=== PATIENT | female | born 1940 | race Caucasian/White ===

== ENCOUNTER 2018-12-24 11:02 | Emergency (ER) | payer MEDICARE ==
[~2018-12-24] VITALS: Ht 165.1 cm; Wt 74.8 kg
[2018-12-24 12:04] LABS: HEMOGLOBIN 15.1 G/DL (11.5-16.0); MEAN CORPUSCULAR HEMOGLOBIN 32 PG (25-34); WHITE BLOOD COUNT 11.3 10^3/uL (4.3-11.0)
[2018-12-24 12:05] LABS: BASOPHILS # (AUTO) 0.1 10^3/uL (0.0-0.1); BASOPHILS % (AUTO) 0 % (0-10); EOSINOPHILS # (AUTO) 0.1 10^3/uL (0.0-0.3); EOSINOPHILS % (AUTO) 1 % (0-10); HEMATOCRIT 46 % (35-52); LYMPHOCYTES # (AUTO) 2.4 X 10^3 (1.0-4.0); LYMPHOCYTES % (AUTO) 21 % (12-44); MEAN CORPUSCULAR HGB CONC 33 G/DL (32-36); MEAN CORPUSCULAR VOLUME 97 FL (80-99); MONOCYTES # (AUTO) 0.9 X 10^3 (0.0-1.0); MONOCYTES % (AUTO) 8 % (0-12); NEUTROPHILS # (AUTO) 7.8 X 10^3 (1.8-7.8); NEUTROPHILS % (AUTO) 69 % (42-75); PLATELET COUNT 255 10^3/uL (130-400); RED CELL DISTRIBUTION WIDTH 14.3 % (10.0-14.5)
[2018-12-24 12:21] LABS: ALANINE AMINOTRANSFERASE 16 U/L (0-55); ALBUMIN 4.4 GM/DL (3.2-4.5); ALKALINE PHOSPHATASE 80 U/L (40-136); BILIRUBIN,TOTAL 0.4 MG/DL (0.1-1.0); BUN/CREATININE RATIO 15; CARBON DIOXIDE 26 MMOL/L (21-32); CHLORIDE 98 MMOL/L (98-107); CREATININE SERUM 0.61 MG/DL (0.60-1.30); GFR ESTIMATED > 60; GLUCOSE 125 MG/DL (70-105); POTASSIUM 4.1 MMOL/L (3.6-5.0); SODIUM 139 MMOL/L (135-145); TOTAL PROTEIN 7.8 GM/DL (6.4-8.2)
[2018-12-24 12:22] LABS: LIPASE 44 U/L (8-78)
[2018-12-24] MEDS ORDERED: NS IV 1000 ML 1,000 ML IV SCH (12:30)
[2018-12-24] MEDS ORDERED: ONDANSETRON 4 MG/2 ML (SDV) Z0FRAN IVP ONE (12:30)
[2018-12-24] MEDS ORDERED: NS 100 ML (IVPB) BAG IV ONE (13:45)
[2018-12-24] MEDS ORDERED: CATHETER FLUSH 10 ML SYR IV PRN (13:45)
[2018-12-24] MEDS ORDERED: HOLD METFORMIN - RECEIVED CONTRAST 20 ML VIAL IV SCH (13:45)
[2018-12-24] MEDS ORDERED: IOHEXOL 350 MG/ML 100 ML (OMNIPAQUE 350) VIAL IV ONE (13:45)
--- NOTE | 2018-12-24 13:45 | ED Abdominal Pain ---
General Chief Complaint: Abdominal/GI Problems Stated Complaint: ABD PAIN, DIARRHEA Source of Information: Patient History of Present Illness Date Seen by Provider: Dec 24, 2018 Time Seen by Provider: 13:21 Initial Comments 78-year-old female presenting with 3 days of epigastric and right upper quadrant abdominal pain associated with nausea vomiting and diarrhea. She feels that her symptoms are a little worse when she tries to eat or drink something. She has no radiation of the pain stays in the epigastric and right upper quadrant. It does not go to her back or up into her chest. She denies having pain like this in the past. She states that he does get a little bit better when she checks some Mylanta. She denies any burning sensation with it. It is mostly ache or pressure. She has 3-4 loose stools a day. She denies any fever or chills. She has had a tubal ligation in the past but still has her gallbladder and appendix. She denies any past history of significant reflux or heartburn disease. She does not take any necessary DC medicine on a daily basis. She has tried acid reducing medicine over the last few days with minimal improvement. Allergies and Home Medications Allergies Coded Allergies: No Known Drug Allergies (Unverified , 12/24/18) Home Medications Pantoprazole Sodium 40 Mg Tablet.dr, 40 MG PO DAILY Prescribed by: JUNIOR REDD on 12/24/18 1520 Sucralfate 1 Gm/10 Ml Oral.susp, 1 GM PO TIDAC Prescribed by: JUNIOR REDD on 12/24/18 1520 Patient Home Medication List Home Medication List Reviewed: Yes Review of Systems Review of Systems Constitutional: No chills, No fever EENTM: No Symptoms Reported Respiratory: No Symptoms Reported Cardiovascular: No Symptoms Reported Gastrointestinal: See HPI Genitourinary: Frequency; Denies Flank Pain, Denies Hematuria, Denies Pain Musculoskeletal: No back pain, No muscle pain Skin: No change in color, No rash Psychiatric/Neurological: No Symptoms Reported Endocrine: No Symptoms Reported Past Kehommf-Rlcbwo-Nmpwtx Hx Past Med/Social Hx: Reviewed Nursing Past Med/Soc Hx Patient Social History Recent Foreign Travel: No Contact w/Someone Who Travel: No Past Medical History Surgeries: Yes Tubal Ligation Physical Exam Vital Signs Capillary Refill : Height/Weight/BMI Height: '" Weight: lbs. oz. kg; BMI Method: General Appearance: WD/WN, no apparent distress HEENT: PERRL/EOMI, pharynx normal Neck: non-tender, full range of motion, supple, normal inspection Respiratory: chest non-tender, lungs clear, normal breath sounds, no respiratory distress, no accessory muscle use Cardiovascular: normal peripheral pulses, tachycardia Gastrointestinal: normal bowel sounds, soft, no pulsatile mass; No rebound; tenderness (RUQ and Epigastric area) Extremities: normal range of motion, non-tender Neurologic/Psychiatric: alert, oriented x 3 Skin: normal color, warm/dry Images 1 - epigastric and RUQ tenderness to palpation Progress/Results/Core Measures Results/Orders Lab Results Laboratory Tests Test 12/24/18 11:49 12/24/18 13:45 Range/Units White Blood Count 11.3 H 4.3-11.0 10^3/uL Red Blood Count 4.74 4.35-5.85 10^6/uL Hemoglobin 15.1 11.5-16.0 G/DL Hematocrit 46 35-52 % Mean Corpuscular Volume 97 80-99 FL Mean Corpuscular Hemoglobin 32 25-34 PG Mean Corpuscular Hemoglobin Concent 33 32-36 G/DL Red Cell Distribution Width 14.3 10.0-14.5 % Platelet Count 255 130-400 10^3/uL Mean Platelet Volume 11.0 H 7.4-10.4 FL Neutrophils (%) (Auto) 69 42-75 % Lymphocytes (%) (Auto) 21 12-44 % Monocytes (%) (Auto) 8 0-12 % Eosinophils (%) (Auto) 1 0-10 % Basophils (%) (Auto) 0 0-10 % Neutrophils # (Auto) 7.8 1.8-7.8 X 10^3 Lymphocytes # (Auto) 2.4 1.0-4.0 X 10^3 Monocytes # (Auto) 0.9 0.0-1.0 X 10^3 Eosinophils # (Auto) 0.1 0.0-0.3 10^3/uL Basophils # (Auto) 0.1 0.0-0.1 10^3/uL Sodium Level 139 135-145 MMOL/L Potassium Level 4.1 3.6-5.0 MMOL/L Chloride Level 98 98-107 MMOL/L Carbon Dioxide Level 26 21-32 MMOL/L Anion Gap 15 H 5-14 MMOL/L Blood Urea Nitrogen 9 7-18 MG/DL Creatinine 0.61 0.60-1.30 MG/DL Estimat Glomerular Filtration Rate > 60 BUN/Creatinine Ratio 15 Glucose Level 125 H 70-105 MG/DL Calcium Level 10.0 8.5-10.1 MG/DL Corrected Calcium 9.7 8.5-10.1 MG/DL Total Bilirubin 0.4 0.1-1.0 MG/DL Aspartate Amino Transf (AST/SGOT) 16 5-34 U/L Alanine Aminotransferase (ALT/SGPT) 16 0-55 U/L Alkaline Phosphatase 80 40-136 U/L Total Protein 7.8 6.4-8.2 GM/DL Albumin 4.4 3.2-4.5 GM/DL Lipase 44 8-78 U/L Urine Color YELLOW Urine Clarity CLEAR Urine pH 7.0 5-9 Urine Specific [place] 1.010 L 1.016-1.022 Urine Protein NEGATIVE NEGATIVE Urine Glucose (UA) NEGATIVE NEGATIVE Urine Ketones 1+ H NEGATIVE Urine Nitrite NEGATIVE NEGATIVE Urine Bilirubin NEGATIVE NEGATIVE Urine Urobilinogen 0.2 NORMAL MG/DL Urine Leukocyte Esterase NEGATIVE NEGATIVE Urine RBC (Auto) NEGATIVE NEGATIVE Urine RBC NONE /HPF Urine WBC 0-2 /HPF Urine Squamous Epithelial Cells 2-5 /HPF Urine Crystals PRESENT H /LPF Urine Amorphous Sediment FEW ANANT PHOSPHATE H /LPF Urine Bacteria TRACE /HPF Urine Casts PRESENT /LPF Urine Hyaline Casts RARE /LPF Urine Mucus SMALL H /LPF Urine Culture Indicated NO My Orders Orders - JUNIOR REDD MD Comprehensive Metabolic Panel (12/24/18 11:56) Lipase (12/24/18 11:56) Ua Culture If Indicated (12/24/18 11:56) Ed Iv/Invasive Line Start (12/24/18 11:56) Cbc With Automated Diff (12/24/18 11:56) Ns Iv 1000 Ml (Sodium Chloride 0.9%) (12/24/18 12:30) Ondansetron Injection (Zofran Injectio (12/24/18 12:30) Ct Abdomen/Pelvis W (12/24/18 13:39) Iohexol Injection (Omnipaque 350 Mg/Ml 1 (12/24/18 13:45) Received Contrast (Hold Metformin- Contr (12/24/18 13:45) Sodium Chloride Flush (Catheter Flush Sy (12/24/18 13:45) Ns (Ivpb) (Sodium Chloride 0.9% Ivpb Bag (12/24/18 13:45) Pantoprazole Injection (Protonix Injecti (12/24/18 15:13) Medications Given in ED Current Medications Medications Dose Ordered Sig/Gabriela Route Start Time Stop Time Status Last Admin Dose Admin Iohexol 100 ml ONCE ONCE IV 12/24/18 13:45 12/24/18 13:48 DC 12/24/18 14:16 100 ML Ondansetron HCl 4 mg ONCE ONCE IVP 12/24/18 12:30 12/24/18 12:31 DC 12/24/18 13:00 4 MG Sodium Chloride 10 ml NEEDED PRN IV 12/24/18 13:45 12/24/18 14:16 10 ML Sodium Chloride 100 ml ONCE ONCE IV 12/24/18 13:45 12/24/18 13:48 DC 12/24/18 14:16 80 ML Progress Progress Note #1: Progress Note check labs, urine and with pain to RUQ will check a CT scan or the abd/pelvis to evaluate for possible cholecystitis vs colitis vs diverticulitis vs severe gastritis Progress Note #2: Progress Note On recheck patient has mild improvement of her pain. Her labs all appear stable with acute significant abnormality on her chemistry panel. Her CBC does show a mild elevation of her white blood cell count of 11.3. Her urinalysis does not show evidence of infection. The CT scan was read out as showing evidence of thickening of the tsai of the distal stomach and proximal small intestine consistent with gastritis and duodenitis. There was concern for possible ulcer disease but no evidence of perforation. Reviewed results with patient and family. We will treat with a dose of Protonix here and discharged on Protonix and Carafate. Encouraged patient to follow up with Dr. De La Cruz in to get an EGD done. Counseled on follow-up and return precautions. Diagnostic Imaging Diagonstic Imaging: CT Plain Films/CT/US/NM/MRI: abdomen, pelvis Comments NAME: NELSON CHRISTOPHER Ayad MED REC#: [id number] PT STATUS: REG ER : 1941 PHYSICIAN: JUNIOR REDD MD ADMIT DATE: 12/24/18/ER FS Draft Date of Exam:12/24/18 CT ABDOMEN/PELVIS W PROCEDURE: CT abdomen and pelvis with contrast. TECHNIQUE: Multiple contiguous axial images were obtained through the abdomen and pelvis after administration of intravenous contrast. Auto Exposure Controls were utilized during the CT exam to meet ALARA standards for radiation dose reduction. INDICATION: Abdominal pain. COMPARISON: None. FINDINGS: The lung bases are clear. The liver, gallbladder, pancreas, spleen, adrenals, left kidney, collecting systems and bladder are negative. The reproductive structures are grossly unremarkable. Simple appearing cyst in the right kidney. There is diffuse wall thickening involving the stomach, antrum, pylorus and first and second portions of the duodenal. No free intraperitoneal air or fluid. No evidence of bowel obstruction. No lymphadenopathy. Moderate to advanced spondylotic changes in the visualized spine. No acute osseous findings. IMPRESSION: Diffuse wall thickening involving the distal stomach through second portion of the duodenum is suspicious for a gastric or duodenal ulceration versus a neuritis. No evidence of perforation or leak. Dictated on workstation # [id number] Dict: 12/24/18 1431 Trans: 12/24/18 1442 [facility] [id number] Interpreted by: EZE MG MD Electronically signed by: Departure Impression Primary Impression: Gastritis and gastroduodenitis Additional Impression: Diarrhea Qualified Codes: R19.7 - Diarrhea, unspecified Disposition: 01 HOME, SELF-CARE Condition: Stable Departure-Patient Inst. Decision time for Depature: 15:14 Referrals: JOANN DE LA CRUZ MD (PCP) Primary Care Physician Patient Instructions: Full Liquid Diet, Gastritis (DC), Ulcer and Gastritis Diet Add. Discharge Instructions: Follow a full liquid diet for 24 to 48 hours then slowly advance to a bland low fat diet Take the medicine for acid and gastritis to help with your abdominal pain. Return or seek medical care immediately if your pain suddenly worsens. Follow up this week about your pain and call Wednesday to see Dr. De La Cruz and get set up for an EGD to look at your stomach lining and be evaluated for an ulcer. All discharge instructions reviewed with patient and/or family. Voiced understanding. Scripts Pantoprazole Sodium (Pantoprazole Sodium) 40 Mg Tablet. 40 MG PO DAILY for gastritis/duodenitis for 30 Days, #30 TAB 0 Refills Prov: JUNIOR REDD MD 12/24/18 Sucralfate (Sucralfate) 1 Gm/10 Ml Oral.susp 1 GM PO TIDAC for gastritis for 15 Days, #450 ML 0 Refills Prov: JUNIOR REDD MD 12/24/18 JUNIOR REDD MD Dec 24, 2018 13:45
[2018-12-24 14:02] LABS: BILIRUBIN,URINE NEGATIVE (NEGATIVE); CLARITY,URINE CLEAR; COLOR,URINE YELLOW; GLUCOSE, URINE (UA) NEGATIVE (NEGATIVE); KETONES,URINE 1+ (NEGATIVE); LEUKOCYTE ESTERASE ,URINE NEGATIVE (NEGATIVE); NITRITE,URINE NEGATIVE (NEGATIVE); PROTEIN,URINE NEGATIVE (NEGATIVE); UROBILINOGEN,URINE 0.2 MG/DL (NORMAL); WBC,URINE 0-2 /HPF
[2018-12-24 14:03] LABS: AMORPHOUS SEDIMENT,UR FEW AMOR PHOSPHATE /LPF; BACTERIA,URINE TRACE /HPF; HYALINE CASTS, URINE RARE /LPF
--- NOTE | 2018-12-24 14:43 | Diagnostic Imaging Report ---
PROCEDURE: CT abdomen and pelvis with contrast. TECHNIQUE: Multiple contiguous axial images were obtained through the abdomen and pelvis after administration of intravenous contrast. Auto Exposure Controls were utilized during the CT exam to meet ALARA standards for radiation dose reduction. INDICATION: Abdominal pain. COMPARISON: None. FINDINGS: The lung bases are clear. The liver, gallbladder, pancreas, spleen, adrenals, left kidney, collecting systems and bladder are negative. The reproductive structures are grossly unremarkable. Simple appearing cyst in the right kidney. There is diffuse wall thickening involving the stomach, antrum, pylorus and first and second portions of the duodenal. No free intraperitoneal air or fluid. No evidence of bowel obstruction. No lymphadenopathy. Moderate to advanced spondylotic changes in the visualized spine. No acute osseous findings. IMPRESSION: Diffuse wall thickening involving the distal stomach through second portion of the duodenum is suspicious for a gastric or duodenal ulceration versus a neuritis. No evidence of perforation or leak. Dictated by: Dictated on workstation # [id number]
[2018-12-24] MEDS ORDERED: PANTOPRAZOLE 40 MG (PROTONIX) VIAL IV STA (15:13)
[2018-12-24] MEDS ORDERED: PANT40TA3 PO (15:20)
[2018-12-24] MEDS ORDERED: SUCR1ORA PO (15:20)
[2018-12-24 15:39] VITALS: BP 149/73
--- OUTSIDE RECORDS SUMMARY | 2018-12-24 19:39 | XMS REPORT ---
Author Author ELIZABETH, JOANN Meryl [facility] Address [address] [place] [address] Care Team Providers Care Keno Writer Name Role Phone SELFJOANN Unavailable PROBLEMS Type Condition ICD9-CM Code AMK74-SZ Code Onset Dates Condition Status SNOMED Code Problem White coat hypertension [id number] Dec, 0 [id number] Problem Need for prophylactic hormone replacement therapy (postmenopausal) V07.4 0 217213223 Problem Disorder of bone and cartilage, unspecified M89.9 0 57648728 Problem Status post colonoscopy V45.89 Jul, 0 [id number] Problem Need for prophylactic hormone replacement therapy (postmenopausal) Z79.890 0 736201605 Problem DDD (degenerative disc disease), lumbar 722.52 Jul, 0 63584119 Problem Status post colonoscopy Z98.890 Jul, 0 [id number] Problem Essential hypertension I10 Active 36632952 Problem Polyp of colon 211.3 Jun, 0 39617663 Problem Hyperlipemia E78.5 Jul, 0 62927901 Problem 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 0 81788946 Problem Closed fracture of lower end of right ulna S52.601A Oct, 0 58039396 Problem Closed fracture of lower end of right ulna 813.43 Oct, 0 34964907 Problem Disorder of bone and cartilage, unspecified 733.90 0 88133844 Problem Hyperlipemia 272.4 Jul, 0 57545163 Problem Diffuse cystic mastopathy 610.1 0 32597898 Problem Generalized osteoarthrosis, unspecified site 715.00 0 094686673 Problem Anxiety F41.9 Jul, 0 41297981 Problem Osteopenia M85.80 Dec, 0 78831643 Problem Pure hypercholesterolemia 272.0 0 879149440 Problem Generalized osteoarthrosis, unspecified site M15.9 0 290831831 Problem Internal hemorrhoids K64.8 14 Jun, 2012 0 19484166 Problem Internal hemorrhoids 455.0 14 Jun, 2012 0 18543257 Problem Osteoporosis 733.00 Jun, 0 44390516 Problem Hyperlipidemia E78.5 Active 52066863 Problem Osteoporosis M81.0 Active 43648021 Problem Primary generalized (osteo)arthritis M15.0 Active 061194252 Problem Cystic mastopathy, unspecified laterality N60.19 Active 79356709 Problem Essential hypertension 401.9 0 97188487 Problem Accelerated essential hypertension I10 Active 27109841 Problem Osteopenia 733.90 Dec, 0 97996511 Problem Anxiety 300.00 Jul, 0 30313067 Problem Polyp of colon K63.5 Active 28700671 Problem Pure hypercholesterolemia E78.00 Active 104182608 Problem White coat hypertension R03.0 Active 308093729 Problem DDD (degenerative disc disease), lumbar M51.36 Active 09890456 ALLERGIES Substance Reaction Event Type Date Status Zocor muscle cramps Drug Allergy Jul, Active Reserpine nausea and vomiting Drug Allergy Jul, Active Lipitor muscle cramps Drug Allergy Jul, Active ENCOUNTERS Encounter Location Date Diagnosis [facility] [address] [place] [address] Aug, Bilateral hearing loss due to cerumen impaction H61.[address] [address] Jul, Essential hypertension I10 ; Pure hypercholesterolemia E78.00 ; Cystic mastopathy, unspecified laterality N60.19 ; Primary generalized (osteo)arthritis M15.0 ; Polyp of colon K63.5 ; Osteoporosis M81.0 ; White coat hypertension R03.0 ; Hyperlipidemia E78.5 and DDD (degenerative disc disease), lumbar M51.[address] [address] Jun, Accelerated essential hypertension I10 [facility] [address] [id number] [address] Apr, [facility] [address] [id number] [address] Jan, [facility] [address] [facility] [id number] [place] [address] May, [facility] [address] [facility] [id number] [address] Jul, IMMUNIZATIONS No Known Immunizations SOCIAL HISTORY Never Assessed REASON FOR VISIT CH PLAN OF CARE Activity Details Follow Up 6 Months Reason:fu lipids VITAL SIGNS Height 5'4" in 2018-07-26 Weight 165 lbs 2018-07-26 BMI 28.32 kg/m2 2018-07-26 Blood pressure systolic 138 mmHg 2018-07-26 Blood pressure diastolic 74 mmHg 2018-07-26 MEDICATIONS Medication Instructions Dosage Frequency Start Date End Date Duration Status Aspirin Adult Low Dose 81 MG Orally Once a day 1 tablet 24h 30 day(s) Active Lisinopril-Hydrochlorothiazide 10-12.5 MG Orally Once a day 1 tablet 24h 30 day(s) Active Citracal +D3 250-107-500 MG-MG-UNIT as directed Active Wana 3 500 500 MG Orally Once a day 3 capsule 24h 30 day(s) Active Ibuprofen 200 MG Orally Three times a day 1 tablet with food or milk as needed 8h Active Livalo 4 mg Orally Once a day 1/2 tablet 24h 90 days Active Multivitamin Adults 50+ - as directed Active Cranberry 300 MG Orally Once a day 1 tablet 24h Active Tylenol 8 Hour 650 MG Orally every 8 hrs 2 tablets as needed 8h Active Vitamin C 100 MG Orally Once a day 1 tablet 24h 30 day(s) Active Vitamin D3 2000 UNIT Orally Once a day 1 capsule 24h 30 day(s) Active RESULTS No Results PROCEDURES Procedure Date Ordered Result Body Site [facility] VISIT ESTABLISHED PATIENT July 26, 2018 INSTRUCTIONS MEDICATIONS ADMINISTERED No Known Medications MEDICAL (GENERAL) HISTORY Type Description Date Medical History Essential hypertension Medical History Pure hypercholesterolemia Medical History Cystic mastopathy, unspecified laterality Medical History Primary generalized (osteo)arthritis Medical History Polyp of colon Medical History Osteoporosis Medical History White coat hypertension Medical History Hyperlipidemia Medical History DDD (degenerative disc disease), lumbar Surgical History colonoscopy Surgical History breast biopsy Surgical History tubal ligation 1982 Surgical History herniated disk repair 1996 Surgical History cataract removal 2016
--- OUTSIDE RECORDS SUMMARY | 2018-12-24 19:39 | XMS REPORT | Continuity of Care Document ---
Author Organization Unknown Address Unknown Phone Unavailable Allergies There is no data. Medications There is no data. Problems There is no data. Procedures There is no data. Results Test Result Range [facility] - 07/19/18 08:34 GLUCOSE 98 mg/dL 65-99 UREA NITROGEN (BUN) 15 mg/dL 7-25 CREATININE 0.66 mg/dL 0.60-0.93 eGFR NON-AFR. FAROESE 85 mL/min/1.73m2 > OR=60 eGFR 99 mL/min/1.73m2 > OR=60 BUN/CREATININE RATIO NOT APPLICABLE (calc) 6-22 SODIUM 141 mmol/L 135-146 POTASSIUM 4.4 mmol/L 3.5-5.3 CHLORIDE 102 mmol/L 98-110 CARBON DIOXIDE 29 mmol/L 20-32 CALCIUM 10.7 mg/dL 8.6-10.4 PROTEIN, TOTAL 7.4 g/dL 6.1-8.1 ALBUMIN 4.6 g/dL 3.6-5.1 GLOBULIN 2.8 g/dL (calc) 1.9-3.7 ALBUMIN/GLOBULIN RATIO 1.6 (calc) 1.0-2.5 BILIRUBIN, TOTAL 0.5 mg/dL 0.2-1.2 ALKALINE PHOSPHATASE 65 U/L 33-130 AST 16 U/L 10-35 ALT 18 U/L 6-29 Encounters ACCT No. Visit Date/Time Discharge Status Pt. Type Provider Facility Loc./Unit Complaint [id number] 08/28/2018 07:50:00 08/28/2018 23:59:59 [facility] [id number] 07/19/2018 08:00:00 Document Registration
== END 2018-12-24 15:39 | disposition home or self-care (01) ==
LOC: ER FS 11:04
DX: K29.70 Gastritis, unspecified, without bleeding (principal); R19.7 Diarrhea, unspecified; Z98.51 Tubal ligation status
CPT/HCPCS: 36415; 74177; 80053; 81000; 83690; 85025; 96374; 96375

== ENCOUNTER 2021-06-29 08:07 | Emergency (ER) | payer MEDICARE ==
[~2021-06-29 08:07] MED LIST: PANT40TA52 PO; SUCR1ORA15 PO
[2021-06-29 08:24] LABS: BASOPHILS % (AUTO) 0 % (0-10); EOSINOPHILS # (AUTO) 0.1 10^3/uL (0.0-0.3); EOSINOPHILS % (AUTO) 1 % (0-10); HEMATOCRIT 47 % (35-52); HEMOGLOBIN 15.9 g/dL (11.5-16.0); LYMPHOCYTES # (AUTO) 1.8 X 10^3 (1.0-4.0); LYMPHOCYTES % (AUTO) 26 % (12-44); MEAN CORPUSCULAR HEMOGLOBIN 32 pg (25-34); MEAN CORPUSCULAR HGB CONC 34 g/dL (32-36); MEAN CORPUSCULAR VOLUME 93 fL (80-99); MEAN PLATELET VOLUME 10.8 fL (9.0-12.2); MONOCYTES # (AUTO) 0.5 X 10^3 (0.0-1.0); MONOCYTES % (AUTO) 7 % (0-12); NEUTROPHILS # (AUTO) 4.6 X 10^3 (1.8-7.8); NEUTROPHILS % (AUTO) 65 % (42-75); PLATELET COUNT 226 10^3/uL (130-400)
--- NOTE | 2021-06-29 08:25 | ED General ---
General Chief Complaint: General Problems/Pain Stated Complaint: SOA Source of Information: Patient, EMS, Family History of Present Illness Date Seen by Provider: Jun 29, 2021 Time Seen by Provider: 08:07 Initial Comments 81-year-old female presenting by EMS from home with complaints of anxiety and trouble concentrating. Patient seems to have some confusion when trying to ask her questions and frequently answers with saying that she does not know and that we need to talk to her family. She denies having headache, pain, chest pain, nausea, vomiting, diarrhea, pain with urination. She can not answer as to why she is in the ER. When asked about what was going on this morning she said she did not want her family to worry about her. She seems anxious and easily startled such as when the blood pressure cuff started to inflate she jumped and almost started to cry. Associated Systoms: No Chest Pain, No Cough, No Diaphoresis, No Fever/Chills, No Headaches, No Nausea/Vomiting, No Seizure, No Shortness of Air, No Syncope, No Weakness Allergies and Home Medications Allergies Coded Allergies: No Known Drug Allergies (Unverified , 12/24/18) Patient Home Medication List Home Medication List Reviewed: Yes Pantoprazole Sodium (Pantoprazole Sodium) 40 Mg Tablet.dr, 40 MG PO DAILY Prescribed by: JUNIOR REDD on 12/24/18 1520 Sucralfate (Sucralfate) 1 Gm/10 Ml Oral.susp, 1 GM PO TIDAC Prescribed by: JUNIOR REDD on 12/24/18 1520 Review of Systems Review of Systems Constitutional: No chills, No fever EENTM: no symptoms reported Respiratory: No cough Cardiovascular: No chest pain Gastrointestinal: No diarrhea, No nausea, No vomiting Genitourinary: No dysuria Musculoskeletal: No back pain, No joint pain Skin: No rash Psychiatric/Neurological: Anxiety; Denies Headache Past Smoltbr-Ugofud-Rlbvin Hx Patient Social History Tobacco Use?: No Substance use?: No Seasonal Allergies Seasonal Allergies: No Past Medical History Surgeries: Yes Tubal Ligation Respiratory: No Cardiac: Yes High Cholesterol, Hypertension Neurological: No 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 oz. 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 Norm as Tested Skin: Normal Color, Warm/Dry Progress/Results/Core Measures Suspected Sepsis SIRS Temperature: Pulse: Respiratory Rate: Laboratory Tests 06/29/21 08:06: White Blood Count 7.0 Blood Pressure / Mean: Laboratory Tests 06/29/21 08:06: Creatinine 0.67, Platelet Count 226, Total Bilirubin 0.6 Results/Orders Lab Results Laboratory Tests Test 06/29/21 08:06 06/29/21 08:58 Range/Units White Blood Count 7.0 4.3-11.0 10^3/uL Red Blood Count 5.02 3.80-5.11 10^6/uL Hemoglobin 15.9 11.5-16.0 g/dL Hematocrit 47 35-52 % Mean Corpuscular Volume 93 80-99 fL Mean Corpuscular Hemoglobin 32 25-34 pg Mean Corpuscular Hemoglobin Concent 34 32-36 g/dL Red Cell Distribution Width 13.7 10.0-14.5 % Platelet Count 226 130-400 10^3/uL Mean Platelet Volume 10.8 9.0-12.2 fL Immature Granulocyte % (Auto) 0 % Neutrophils (%) (Auto) 65 42-75 % Lymphocytes (%) (Auto) 26 12-44 % Monocytes (%) (Auto) 7 0-12 % Eosinophils (%) (Auto) 1 0-10 % Basophils (%) (Auto) 0 0-10 % Neutrophils # (Auto) 4.6 1.8-7.8 X 10^3 Lymphocytes # (Auto) 1.8 1.0-4.0 X 10^3 Monocytes # (Auto) 0.5 0.0-1.0 X 10^3 Eosinophils # (Auto) 0.1 0.0-0.3 10^3/uL Basophils # (Auto) 0.0 0.0-0.1 10^3/uL Immature Granulocyte # (Auto) 0.0 0.0-0.1 10^3/uL Sodium Level 137 135-145 MMOL/L Potassium Level 3.6 3.6-5.0 MMOL/L Chloride Level 100 98-107 MMOL/L Carbon Dioxide Level 22 21-32 MMOL/L Anion Gap 15 H 5-14 MMOL/L Blood Urea Nitrogen 11 7-18 MG/DL Creatinine 0.67 0.60-1.30 MG/DL Estimat Glomerular Filtration Rate 88 BUN/Creatinine Ratio 16 Glucose Level 114 H 70-105 MG/DL Calcium Level 10.4 H 8.5-10.1 MG/DL Corrected Calcium 10.3 H 8.5-10.1 MG/DL Total Bilirubin 0.6 0.1-1.0 MG/DL Aspartate Amino Transf (AST/SGOT) 18 5-34 U/L Alanine Aminotransferase (ALT/SGPT) 19 0-55 U/L Alkaline Phosphatase 77 40-136 U/L Troponin I < 0.30 <0.30 NG/ML Total Protein 7.1 6.4-8.2 GM/DL Albumin 4.1 3.2-4.5 GM/DL Lipase 54 8-78 U/L Salicylates Level < 0.3 L 5.0-20.0 MG/DL Acetaminophen Level < 10 L 10-30 UG/ML Serum Alcohol < 10 <10 MG/DL Urine Color YELLOW Urine Clarity CLOUDY Urine pH 8.5 5-9 Urine Specific [place] 1.015 L 1.016-1.022 Urine Protein NEGATIVE NEGATIVE Urine Glucose (UA) NEGATIVE NEGATIVE Urine Ketones TRACE H NEGATIVE Urine Nitrite NEGATIVE NEGATIVE Urine Bilirubin NEGATIVE NEGATIVE Urine Urobilinogen 0.2 < = 1.0 MG/DL Urine Leukocyte Esterase NEGATIVE NEGATIVE Urine RBC (Auto) NEGATIVE NEGATIVE Urine RBC NONE /HPF Urine WBC NONE /HPF Urine Crystals PRESENT H /LPF Urine Amorphous Sediment LARGE ANANT PHOSPHATE H /LPF Urine Bacteria TRACE /HPF Urine Casts NONE /LPF Urine Mucus NEGATIVE /LPF Urine Culture Indicated NO Urine Opiates Screen NEGATIVE NEGATIVE Urine Oxycodone Screen NEGATIVE NEGATIVE Urine Methadone Screen NEGATIVE NEGATIVE Urine Propoxyphene Screen NEGATIVE NEGATIVE Urine Barbiturates Screen NEGATIVE NEGATIVE Ur Tricyclic Antidepressants Screen NEGATIVE NEGATIVE Urine Phencyclidine Screen NEGATIVE NEGATIVE Urine Amphetamines Screen NEGATIVE NEGATIVE Urine Methamphetamines Screen NEGATIVE NEGATIVE Urine Benzodiazepines Screen NEGATIVE NEGATIVE Urine Cocaine Screen NEGATIVE NEGATIVE Urine Cannabinoids Screen NEGATIVE NEGATIVE My Orders Orders - JUNIOR REDD MD Ua Culture If Indicated (06/29/21 08:18) Cbc With Automated Diff (06/29/21 08:18) Comprehensive Metabolic Panel (06/29/21 08:18) Alcohol (06/29/21 08:18) Drug Screen Stat (Urine) (06/29/21 08:18) Acetaminophen (06/29/21 08:18) Salicylate (06/29/21 08:18) Ekg Tracing (06/29/21 08:18) Ed Iv/Invasive Line Start (06/29/21 08:18) Monitor-Rhythm Ecg Trace Only (06/29/21 08:18) Ct Head Wo (06/29/21 08:18) Lipase (06/29/21 08:18) Troponin I Fs (06/29/21 08:41) Vital Signs/I&O 06/29/21 06/29/21 08:11 09:36 Temp 36.4 36.4 Pulse 94 88 Resp 18 16 B/P (MAP) 166/84 (111) 143/73 Pulse Ox 100 100 O2 Delivery Room Air Room Air Capillary Refill : Progress Note #1: Progress Note Unclear about specific concerns. Will clarify with the family about their reasoning for coming to the emergency department. Patient was recently started within the last week on an additional blood pressure medicine of metoprolol. She also was started on sertraline, trazodone, hydroxyzine, all within the last week. Will order general electrolytes and chemistry as well as cardiac and urinalysis. CT head to check for stroke or mass that might be contributing to anxiety and trouble concentrating. Differential diagnosis includes electrolyte imbalance, anxiety, stroke, depression, medication side effect, brain mass, heart attack Progress Note #2: Time: 08:54 Progress Note CBC and chemistry are stable without acute significant abnormality to account for her symptoms. Troponin was less than 0.3. Electrocardiogram shows a sinus rhythm without ST elevation. Her CT scan of the head did not show acute intracranial process. There was some fluid with an air-fluid level in the left maxillary sinus for possible sinusitis. Her acetaminophen, salicylate, alcohol levels were all negative. Urinalysis and urine drug screen are pending. Progress Note #3: Time: 09:16 Progress Note Urine drug screen is negative. Urinalysis has a specific gravity 1.015. She has trace ketones and some crystals present in the urine. There is no sign of infection. Based off of these test and findings she has no acute significant abnormality from the medical standpoint to explain her anxiety. Would recommend patient and family with checking back with Dr. De La Cruz for referral to psychiatry for more specific treatment of her anxiety. In the meantime she could continue taking medications that were just started. Since it has only been a week for the sertraline in less than a week for the hydroxyzine and trazodone these have not had much time to start working or get to a therapeutic level in her system. reports they do have appointment to see Dr. Price Wednesday this week. They will continue to work on her anxiety and stress. Counseled pt and family about medicines that were just started and wrote indications for the new medicines on the prescription bottles to help them know what the medicines were for so they knew when to give and for what reason. ECG Initial ECG Impression Date: Jun 29, 2021 Initial ECG Impression Time: 08:20 Initial ECG Rate: 78 Initial ECG Rhythm: Normal Sinus Initial ECG Comparisson: No Previous ECG Available Comment Normal sinus rhythm with a heart rate of 78 bpm. There are premature atrial complexes. There is right axis deviation. [place] interval of [address] elevation. QT interval of 376 ms with a QTc interval of 429 ms. There is no prior tracing available for comparison. Diagnostic Imaging Diagonstic Imaging: CT Plain Films/CT/US/NM/MRI: head Comments [facility] [place], [place] NAME: NELSON CHRISTOPHER Ayad MED REC#: [id number] PT STATUS: REG ER : 1940 PHYSICIAN: JUNIOR REDD MD ADMIT DATE: 06/29/21/ER FS Draft Date of Exam:06/29/21 CT HEAD WO PROCEDURE: CT head without contrast. TECHNIQUE: Multiple contiguous axial images were obtained through the brain without the use of intravenous contrast. Auto Exposure Controls were utilized during the CT exam to meet ALARA standards for radiation dose reduction. INDICATION: Altered mental status and ataxia. COMPARISON: None available. FINDINGS: No intracranial hyperdense hemorrhage or space-occupying mass. No hydrocephalus or midline shift. Hypoattenuation of the periventricular white matter is most compatible with chronic microvascular ischemic disease. Basilar cisterns are widely patent. Small air-fluid level within the left maxillary sinus. Other paranasal sinuses are clear. IMPRESSION: 1. No acute intracranial process. 2. Left maxillary sinus air-fluid level could be due to acute sinusitis in the appropriate setting. No features of complication of acute sinusitis. Dictated on workstation # [id number] Dict: 06/29/21 0851 Trans: 06/29/21 0855 [facility] [id number] Interpreted by: GABBY MONTGOMERY MD Electronically signed by: Reviewed: Reviewed by Me Departure Impression Primary Impression: Anxiety Disposition: 01 HOME, SELF-CARE Condition: Stable Departure-Patient Inst. Decision time for Depature: 09:18 Referrals: JOANN DE LA CRUZ MD (PCP/Family) Primary Care Physician Patient Instructions: Anxiety, Adult ED, Tips to Help You [place] in Uncertain Times Add. Discharge Instructions: Check back with Dr. De La Cruz about your concerns. You may need to see a therapist or counselor about your anxiety and worries. Your tests today do not show signs of infection, electrolyte abnormality, heart attack or stroke. All discharge instructions reviewed with patient and/or family. Voiced understanding. JUNIOR REDD MD Jun 29, 2021 08:25
[2021-06-29 08:42] LABS: ALANINE AMINOTRANSFERASE 19 U/L (0-55); ALBUMIN 4.1 GM/DL (3.2-4.5); ALKALINE PHOSPHATASE 77 U/L (40-136); BILIRUBIN,TOTAL 0.6 MG/DL (0.1-1.0); BUN/CREATININE RATIO 16; CALCIUM 10.4 MG/DL (8.5-10.1); CARBON DIOXIDE 22 MMOL/L (21-32); CHLORIDE 100 MMOL/L (98-107); CREATININE SERUM 0.67 MG/DL (0.60-1.30); GFR ESTIMATED 88; GLUCOSE 114 MG/DL (70-105); POTASSIUM 3.6 MMOL/L (3.6-5.0); SODIUM 137 MMOL/L (135-145); TOTAL PROTEIN 7.1 GM/DL (6.4-8.2)
[2021-06-29 08:43] LABS: ACETAMINOPHEN < 10 UG/ML (10-30); SALICYLATE < 0.3 MG/DL (5.0-20.0)
--- NOTE | 2021-06-29 08:55 | Diagnostic Imaging Report ---
PROCEDURE: CT head without contrast. TECHNIQUE: Multiple contiguous axial images were obtained through the brain without the use of intravenous contrast. Auto Exposure Controls were utilized during the CT exam to meet ALARA standards for radiation dose reduction. INDICATION: Altered mental status and ataxia. COMPARISON: None available. FINDINGS: No intracranial hyperdense hemorrhage or space-occupying mass. No hydrocephalus or midline shift. Hypoattenuation of the periventricular white matter is most compatible with chronic microvascular ischemic disease. Basilar cisterns are widely patent. Small air-fluid level within the left maxillary sinus. Other paranasal sinuses are clear. IMPRESSION: 1. No acute intracranial process. 2. Left maxillary sinus air-fluid level could be due to acute sinusitis in the appropriate setting. No features of complication of acute sinusitis. Dictated by: Dictated on workstation # [id number]
[2021-06-29 09:05] LABS: BILIRUBIN,URINE NEGATIVE (NEGATIVE); CLARITY,URINE CLOUDY; COLOR,URINE YELLOW; GLUCOSE, URINE (UA) NEGATIVE (NEGATIVE); KETONES,URINE TRACE (NEGATIVE); LEUKOCYTE ESTERASE ,URINE NEGATIVE (NEGATIVE); NITRITE,URINE NEGATIVE (NEGATIVE); PH,URINE 8.5 (5-9); PROTEIN,URINE NEGATIVE (NEGATIVE)
[2021-06-29 09:06] LABS: AMORPHOUS SEDIMENT,UR LARGE AMOR PHOSPHATE /LPF; BACTERIA,URINE TRACE /HPF
[2021-06-29 09:13] LABS: AMPHETAMINE SCREEN, URINE NEGATIVE (NEGATIVE); BARBITURATE SCREEN URINE NEGATIVE (NEGATIVE); BENZODIAZEPINES SCREEN URINE NEGATIVE (NEGATIVE); CANNABINOID SCREEN, URINE NEGATIVE (NEGATIVE); COCAINE SCREEN URINE NEGATIVE (NEGATIVE); METHADONE STAT NEGATIVE (NEGATIVE); METHAMPHETAMINE SCREEN URINE S NEGATIVE (NEGATIVE); OPIATE SCREEN URINE NEGATIVE (NEGATIVE); OXYCODONE STAT NEGATIVE (NEGATIVE); PROPOXYPHENE STAT NEGATIVE (NEGATIVE); TRICYCLIC ANTIDEPRESSANTS SCRE NEGATIVE (NEGATIVE)
[2021-06-29 09:36] VITALS: BP 143/73
== END 2021-06-29 10:05 | disposition home or self-care (01) ==
LOC: EDUNIT# 08:07 → ER FS 08:08
DX: F41.9 Anxiety disorder, unspecified (principal); I10 Essential (primary) hypertension
CPT/HCPCS: 36415; 70450; 80053; 80306; 81000; 83690; 84484; 85025; 93005; 93041; 99284; G0480 ×3; 80320; 80329

== ENCOUNTER → 2021-08-07 | Outpatient (CLI) | payer MEDICARE ==
--- NOTE | 2021-08-07 10:33 | Diagnostic Imaging Report ---
CLINICAL INDICATION: Patient having anxiety and depression problems. EXAM: MRI of the brain performed without contrast. Sequences include axial DWI, ADC map, axial T2, axial T1, axial FLAIR, axial gradient echo, and sagittal T1. COMPARISON: Head CT without contrast dated 06/29/2021. FINDINGS: There is a 12 mm heterogeneous mixed high/low T1 and T2 signal rounded area involving the basilar medial right frontal lobe region. This area appears possibly dural based. There are multiple focal and patchy areas of high T2 signal white matter changes involving both cerebral hemispheres and periventricular regions suspected to represent chronic small vessel ischemic disease. The brain parenchymal volume appears appropriate for patient's age. There is no hydrocephalus. There is no brain herniation or midline shift. Basal cisterns are unremarkable. There are multiple prominent vascular spaces involving both cerebral hemispheres. The [place] vascular structures show no gross abnormality as visualized. The pituitary gland, sella, and suprasellar regions are unremarkable as visualized. The extracranial soft tissues, skull, and orbits show no significant abnormality. Paranasal sinuses and mastoid air cells are clear. IMPRESSION: 1: There is a 12 mm circumscribed heterogeneous nodular area involving the medial basilar right frontal lobe region. This appears dural based. Meningioma may be considered. MRI of the brain with contrast is suggested for further evaluation, if this is not a known finding. 2: There is brain parenchymal volume loss which appears appropriate for patient's age. 3: There is chronic small vessel ischemic disease. Dictated by: Dictated on workstation # [id number]
== END ==
LOC: RAD 08:59
PROVIDERS: ATTEND Family Medicine
DX: G31.9 Degenerative disease of nervous system, unspecified (principal); I67.82 Cerebral ischemia; G93.89 Other specified disorders of brain
CPT/HCPCS: 70551

== ENCOUNTER → 2022-01-13 | Outpatient (CLI) | payer MEDICARE ==
[~2022-01-13] MED LIST changes: +GADOTERATE 0.5 MMOL/ML (CLARISCAN) 15 ML VIAL IV ONE
--- NOTE | 2022-01-13 19:20 | Diagnostic Imaging Report ---
CLINICAL INDICATION: Patient with history of meningioma. Recheck. Exam: MRI of the brain performed without and with 9 cc of IV contrast. Sequences include axial DWI, ADC map, coronal gradient echo, axial FLAIR, axial T1, axial T2, axial T1 post IV contrast whole brain, coronal T1 fat-sat post IV contrast whole brain, and sagittal T1 fat-sat post IV contrast whole brain. Comparison: MRI of the brain without contrast dated 08/07/2021. Findings: There is a 10 mm x 12 mm x 7 mm (AP x Trans x CC) avidly enhancing dural based mass along the right of midline planum sphenoidale region most consistent with meningioma. There is a small dural tail associated with this mass. There is localized encroachment upon the adjacent brain parenchyma with no significant brain parenchymal signal. There is roughly 6 mm subtle area of enhancement involving the right of midline anterior aspect of the edith which is seen on all 3 postcontrast sequences. There appears to be very subtle increased T2 signal in the area. There is also subtle increased T2 signal seen in this region on the prior study. Again seen multiple focal and patchy areas of high T2 signal white matter changes involving both cerebral hemispheres and periventricular regions, likely representing chronic small vessel ischemic disease. There is brain parenchymal volume loss. There is no hydrocephalus. There is no brain herniation or midline shift. Basal cisterns are unremarkable. The extracranial soft tissues, skull, and orbits are unremarkable. Paranasal sinuses and mastoid air cells are clear. The extracranial soft tissues, skull, and orbits are unremarkable. IMPRESSION: 1: There is a 12 mm avidly enhancing dural based mass along the right of midline planum sphenoidale region most consistent with meningioma. 2: There is a 6 mm subtle area of enhancement involving the right of midline anterior aspect of the edith with very subtle increased T2 signal. This subtle increased T2 signal is also noted on the prior MRI. Primary brain neoplasm cannot be completely excluded. Capillary telangiectasia may also be considered. Follow-up MRI of the brain with and without contrast in 3 months is suggested for further evaluation. 3: Stable age-related brain parenchymal changes. Dictated by: Dictated on workstation # [id number]
== END ==
LOC: RAD 11:29
PROVIDERS: ATTEND Nurse Practitioner
DX: D49.7 Neoplasm of unspecified behavior of endocrine glands and other parts of nervous system (principal); G31.1 Senile degeneration of brain, not elsewhere classified
CPT/HCPCS: 70553